=== PATIENT | female | born 1990 ===

== ENCOUNTER 2018-06-24 12:08 | Outpatient (CLI) | payer OTHER ==
[~2018-06-24] VITALS: Ht 165.1 cm; Wt 81.6 kg
== END 2018-06-24 12:25 | disposition home or self-care (01) ==
LOC: OFIC 805 12:08
DX: H91.8X3 Other specified hearing loss, bilateral (principal); H61.23 Impacted cerumen, bilateral; K21.0 Gastro-esophageal reflux disease with esophagitis